=== PATIENT | female | born 1980 | race Native Hawaiian/Other Pacific Islander ===

== ENCOUNTER 2016-09-28 15:25 | Outpatient (CLI) | payer OTHER ==
[~2016-09-28 15:25] MED LIST: ACET7.5T70 PO; ALBUSOL INH; ALBUTEROL2 MG/5 ML PO; ALPR0.5T24 PO; ALPR1TAB61 PO; AMITIZA24 MCG OR; AMLO5TAB PO; AMOX875T8 PO; BUME1TAB19 PO; BUMETANIDE1 MG PO; BUPAP1 TAB OR; BUT/APAP/CA1 PO; COUMADIN5 MG PO; DIOVAN HCT160 MG/25 PO; FLUTMIS2 INH; FURO20TA67 PO; FURO40TA93 PO; HYDR-2748 PO; HYDR25TA60 PO; KLOR-CON M2020 MEQ PO; LEVO0.0218 PO; LORA10TA3 PO; LUBI24CA PO; NEXIUM40 M1 PO; NORCO 10/325***1 TAB PO; NYST100010 EX; POTASSIUM25 MEQ PO; PROM25TA52 PO; ROBAXIN-750750 MG PO; SILV1CRE EX; SPIRIVA IN; TRIA0.1C5 EX; TRIA37.541 PO; VALSARTAN160 MG PO; WARF10TA5 PO; WARFARIN1 MG PO; WARFARIN5 MG PO; WARFARIN7.5 MG PO
== END 2016-09-28 19:21 | disposition home or self-care (01) ==
LOC: LABW 15:25
DX: Z79.01 Long term (current) use of anticoagulants (principal); Z51.81 Encounter for therapeutic drug level monitoring
CPT/HCPCS: 36415; 85610

== ENCOUNTER 2017-02-04 10:18 | Outpatient (CLI) | payer OTHER | END 2017-02-04 19:30 | disposition home or self-care (01) | LOC: MRI 10:18 | DX: M54.5 Low back pain (principal); M25.552 Pain in left hip; Z79.01 Long term (current) use of anticoagulants; M54.10 Radiculopathy, site unspecified ==

== ENCOUNTER 2017-07-19 17:19 | Outpatient (CLI) | payer OTHER | END 2017-07-19 21:17 | disposition home or self-care (01) | LOC: LAB 17:19 | DX: R50.9 Fever, unspecified (principal) | CPT/HCPCS: 87804 ==

== ENCOUNTER 2019-05-03 11:00 | Inpatient (IN) | payer OTHER ==
[~2019-05-03] VITALS: Ht 160 cm; Wt 150.7 kg
[2019-05-03 11:48] VITALS: BP 152/86; TEMP 97.5
[2019-05-03 12:45] LABS: PLATELET COUNT 216 K/uL (152-353)
[2019-05-03 14:28] VITALS: BP 152/86; TEMP 97.5; Ht 160 cm; Wt 150.7 kg
[2019-05-03 16:00] VITALS: BP 154/75; TEMP 100.4
[2019-05-03] MEDS ORDERED: RANITIDINE HYD300 MG PO (16:18)
[2019-05-03] MEDS ORDERED: JANTOVEN5 MG PO (16:19)
[2019-05-03] MEDS ORDERED: JANTOVEN7.5 MG PO (16:21)
[2019-05-03] MEDS ORDERED: DOCU100C10 PO (16:21)
[2019-05-03] MEDS ORDERED: TRIA75TA61 PO (16:22)
[2019-05-03] MEDS ORDERED: POTASSIUM25 MEQ PO (16:22)
[2019-05-03 20:00] VITALS: BP 126/77; TEMP 99.5
[2019-05-04] VITALS: BP 130/71; TEMP 98.5
[2019-05-04 04:00] VITALS: BP 129/86; TEMP 97.4
[2019-05-04 08:00] VITALS: BP 165/90; TEMP 98
[2019-05-04 09:35] LABS: POTASSIUM 3.6 mmol/L (3.6-5.2)
[2019-05-04 12:00] VITALS: BP 149/65; TEMP 98.1
[2019-05-04 13:48] LABS: PLATELET COUNT 208 K/uL (152-353)
[2019-05-04 16:00] VITALS: BP 111/78; TEMP 97.4
[2019-05-04 19:38] VITALS: BP 122/75; TEMP 98
[2019-05-05] VITALS: BP 110/62; TEMP 99.1
[2019-05-05 04:24] VITALS: BP 104/73; TEMP 98.6
[2019-05-05 05:31] LABS: PLATELET COUNT 191 K/uL (152-353)
[2019-05-05 05:49] LABS: POTASSIUM 3.3 mmol/L (3.6-5.2)
[2019-05-05 08:00] VITALS: BP 120/76; TEMP 97.4
[2019-05-05 12:00] VITALS: BP 97/73; TEMP 98.5
[2019-05-05 16:00] VITALS: BP 145/98; BP 192/78; TEMP 98.3
[2019-05-05 19:59] VITALS: BP 112/70; TEMP 98.7
[2019-05-06] VITALS: BP 101/62; TEMP 97.7
[2019-05-06 04:00] VITALS: BP 124/74; TEMP 98.2
[2019-05-06 05:13] LABS: PLATELET COUNT 225 K/uL (152-353)
[2019-05-06 05:37] LABS: POTASSIUM 3.3 mmol/L (3.6-5.2)
[2019-05-06 08:00] VITALS: BP 99/67; TEMP 97.4
[2019-05-06 12:00] VITALS: BP 125/76; TEMP 97.6
[2019-05-06 16:00] VITALS: BP 144/91; TEMP 97.9
[2019-05-06 20:00] VITALS: BP 121/77; TEMP 98.4
[2019-05-07] VITALS (7 sets, daily range): BP systolic 11–129; BP diastolic 66–82; TEMP 97.3–98.1
[2019-05-07 05:50] LABS: PLATELET COUNT 242 K/uL (152-353)
[2019-05-07 05:56] LABS: POTASSIUM 3.3 mmol/L (3.6-5.2)
[2019-05-08 04:00] VITALS: BP 121/78; TEMP 97.6
[2019-05-08 08:00] VITALS: BP 118/85; TEMP 97.5
[2019-05-08 08:08] LABS: PLATELET COUNT 230 K/uL (152-353)
[2019-05-08 08:27] LABS: POTASSIUM 3.6 mmol/L (3.6-5.2)
[2019-05-08 12:00] VITALS: BP 140/91; TEMP 98.1
== END 2019-05-08 15:05 | disposition home or self-care (01) | DRG 603 ==
LOC: MED/SURG 11:00
PROVIDERS: ADMIT Family Medicine
DX: L03.116 Cellulitis of left lower limb (principal); Z79.01 Long term (current) use of anticoagulants; E66.01 Morbid (severe) obesity due to excess calories; Z86.73 Personal history of transient ischemic attack (TIA), and cerebral infarction without residual deficits; F70 Mild intellectual disabilities; E03.8 Other specified hypothyroidism; B95.62 Methicillin resistant Staphylococcus aureus infection as the cause of diseases classified elsewhere; I10 Essential (primary) hypertension; K58.9 Irritable bowel syndrome, unspecified; F41.8 Other specified anxiety disorders; I25.10 Atherosclerotic heart disease of native coronary artery without angina pectoris
CPT/HCPCS: 36415; 80053; 85027; 85610; 87040; 87070; 87077; 87185; 87186; 87205; J1940; J1956

== ENCOUNTER 2020-05-27 09:47 | Emergency (ER) | payer OTHER ==
[~2020-05-27] VITALS: Ht 161.3 cm; Wt 163.3 kg
[~2020-05-27 09:47] MED LIST changes: +DOCU100C10 PO; +JANTOVEN5 MG PO; +JANTOVEN7.5 MG PO; +RANITIDINE HYD300 MG PO; +TRIA75TA61 PO
[2020-05-27 11:06] LABS: PLATELET COUNT 228 K/uL (152-353)
[2020-05-27 11:15] LABS: POTASSIUM 3.9 mmol/L (3.6-5.2)
[2020-05-27 12:30] VITALS: BP 117/84; TEMP 97.8
== END 2020-05-27 12:30 | disposition home or self-care (01) ==
LOC: ED 09:47
PROVIDERS: Emergency Medicine Emergency Medical Services
DX: S30.1XXA Contusion of abdominal wall, initial encounter (principal); W01.198A Fall on same level from slipping, tripping and stumbling with subsequent striking against other object, initial encounter; Y92.89 Other specified places as the place of occurrence of the external cause
CPT/HCPCS: 36415; 80048; 81000; 85027; 85610; 96360; 96375; 99284; J2270; J2405; Q9963

== ENCOUNTER 2020-07-05 11:11 | Outpatient (CLI) | payer OTHER | END 2020-07-05 23:59 | disposition home or self-care (01) | LOC: LAB 11:11 | PROVIDERS: ATTEND Family Medicine | DX: Z20.828 Contact with and (suspected) exposure to other viral communicable diseases (principal); R05 Cough | CPT/HCPCS: 87635; G2023; U0003 ==

== ENCOUNTER 2020-09-17 13:13 | Outpatient (CLI) | payer OTHER | END 2020-09-17 21:19 | disposition home or self-care (01) | LOC: INF 13:13 | PROVIDERS: ATTEND Internal Medicine | DX: Z23 Encounter for immunization (principal) | CPT/HCPCS: 96372 ==

== ENCOUNTER 2020-10-10 13:33 | Outpatient (CLI) | payer OTHER | END 2020-10-10 19:55 | disposition home or self-care (01) | LOC: INF 13:33 | PROVIDERS: ATTEND Internal Medicine | DX: Z23 Encounter for immunization (principal) | CPT/HCPCS: 96372 ==

== ENCOUNTER 2020-12-19 14:37 | Emergency (ER) | payer OTHER ==
[~2020-12-19] VITALS: Ht 161.3 cm; Wt 163.3 kg
[2020-12-19 14:48] VITALS: TEMP 97.7
[2020-12-19 16:36] LABS: PLATELET COUNT 222 K/uL (152-353)
[2020-12-19 16:52] LABS: PARTIAL THROMBOPLASTIN TIME 59.5 SECONDS (24.5-33.6); POTASSIUM 3.7 mmol/L (3.6-5.2)
[2020-12-19 19:15] VITALS: BP 132/78
== END 2020-12-19 19:15 | disposition home or self-care (01) ==
LOC: ED 14:37
PROVIDERS: Emergency Medicine
DX: S00.83XA Contusion of other part of head, initial encounter (principal); R79.1 Abnormal coagulation profile; Z79.01 Long term (current) use of anticoagulants; Y04.2XXA Assault by strike against or bumped into by another person, initial encounter; Y92.89 Other specified places as the place of occurrence of the external cause
CPT/HCPCS: 80048; 85027; 85610; 85730; 99283

== ENCOUNTER 2021-04-10 12:41 | Outpatient (CLI) | payer OTHER | END 2021-04-10 18:57 | disposition home or self-care (01) | LOC: LAB 12:41 | PROVIDERS: ATTEND Family Medicine | DX: R05.9 Cough, unspecified (principal); J02.9 Acute pharyngitis, unspecified; R52 Pain, unspecified; Z11.52 Encounter for screening for COVID-19 | CPT/HCPCS: 87635; G2023; U0003 ==